=== PATIENT | female | born 1985 | race Hispanic/Latino ===

== ENCOUNTER 2020-11-07 11:22 | Inpatient (IN) | payer OTHER ==
[~2020-11-07] VITALS: Ht 157.5 cm; Wt 63.5 kg
[2020-11-07] MEDS ORDERED: ONDANSETRON HCL INJ 2MG/ML 2ML 2 MG/ML VIAL IV STA ×2 (11:35→21:44)
[2020-11-07] MEDS ORDERED: SODIUM CHLORIDE 0.9% 1000ML 1,000 ML IV STA (11:35)
[2020-11-07] MEDS ORDERED: KETOROLAC TROMETHAMINE 30 MG/ML VIAL IV STA (11:35)
[2020-11-07 12:42] LABS: BASOPHILS % 0.3 % (0.0-1.0); EOSINOPHILS # (AUTO) 0.1 (0.0-0.4); EOSINOPHILS % 1.3 % (0.0-6.0); HEMOGLOBIN 14.7 g/dL (12.0-16.0); LYMPHOCYTES # (AUTO) 1.9 (1.0-3.2); LYMPHOCYTES % 30.3 % (18.0-39.1); MEAN CORPUSCULAR HEMOGLOBIN 29.3 pg (28-32); MEAN CORPUSCULAR VOLUME 83.8 fL (81-99); MONOCYTES # (AUTO) 0.3 (0.2-0.8); NEUTROPHILS % 62.6 % (38.7-80.0); PLATELET COUNT 177 x10e3/uL (140-360); RED BLOOD COUNT 5.01 x10e6/uL (3.6-5.1); RED CELL DISTRIBUTION WIDTH 12.7 % (11.7-14.4)
[2020-11-07 12:59] LABS: ALANINE AMINOTRANSFERASE 29 IU/L (0-55); ALBUMIN 3.6 g/dL (3.5-5.0); ALBUMIN/GLOBULIN RATIO 0.7 (0.8-2.0); ALKALINE PHOSPHATASE 102 IU/L (40-150); ANION GAP 30.4 mmol/L (8-16); BLOOD UREA NITROGEN 9 mg/dL (7-26); BUN/CREATININE RATIO 13 (6-25); CALCIUM 8.4 mg/dL (8.4-10.2); CARBON DIOXIDE 9 mmol/L (22-29); CHLORIDE 96 mmol/L (98-107); CREATINE KINASE 57 IU/L (29-168); CREATININE, SERUM 0.71 mg/dL (0.57-1.11); EST GLOMERULAR FILTRATION RATE > 60 ML/MIN (60-); GLUCOSE 276 mg/dL (74-118); POTASSIUM 3.4 mmol/L (3.5-5.1); SODIUM 132 mmol/L (136-145)
[2020-11-07] MEDS ORDERED: ONDANSETRON HCL INJ 2MG/ML 2ML 2 MG/ML VIAL ONE (13:29)
[2020-11-07] MEDS ORDERED: KETOROLAC TROMETHAMINE 30 MG/ML VIAL ONE (13:29)
[2020-11-07] MEDS ORDERED: METOCLOPRAMIDE HCL 10 MG/2ML VIAL IV ONE (14:15)
[2020-11-07] MEDS ORDERED: DIPHENHYDRAMINE HCL INJ 50 MG/ML VIAL IV ONE (14:15)
[2020-11-07] MEDS ORDERED: FENTANYL CITRATE/PF 100MCG/2 ML INJ ONE (15:03)
[2020-11-07] MEDS ORDERED: SODIUM CHLORIDE 0.9% 50ML 50 ML ONE (15:50)
[2020-11-07] MEDS ORDERED: IOPAMIDOL 370 MG/ML 200 ML INFUS..BTL INJ ONE (15:50)
[2020-11-07] MEDS: SODIUM CHLORIDE 0.9% 1000ML 1,000 ML IV SCH ×2 (15:57→17:00)
[2020-11-07] MEDS ORDERED: LACTATED RINGER'S 1,000 ML INJ ONE (16:00)
[2020-11-07] MEDS ORDERED: FENTANYL CITRATE/PF 100MCG/2 ML INJ IV ONE (16:15)
[2020-11-07] MEDS ORDERED: ONDANSETRON HCL INJ 2MG/ML 2ML 2 MG/ML VIAL IV PRN (17:30)
[2020-11-07 17:39] LABS: ANION GAP 26.9 mmol/L (8-16); BLOOD UREA NITROGEN 6 mg/dL (7-26); BUN/CREATININE RATIO 9 (6-25); CALCIUM 7.7 mg/dL (8.4-10.2); CARBON DIOXIDE 12 mmol/L (22-29); CHLORIDE 99 mmol/L (98-107); CREATININE, SERUM 0.65 mg/dL (0.57-1.11); EST GLOMERULAR FILTRATION RATE > 60 ML/MIN (60-); GLUCOSE 248 mg/dL (74-118); POTASSIUM 3.9 mmol/L (3.5-5.1); SODIUM 134 mmol/L (136-145)
[2020-11-07] MEDS: HYDROMORPHONE 1MG/1ML INJ IV PRN ×3 (17:50→21:55)
[2020-11-07 18:00] VITALS: BP 143/41
[2020-11-07] MEDS ORDERED: INSULIN REGULAR, HUMAN 3ML VL 300 UNIT in SODIUM CHLORIDE 0.45% 100 ML 300 ML IV SCH ×2 (19:30)
[2020-11-07] MEDS ORDERED: DEXTROSE 50% SYRINGE 50 ML IV PRN (19:30)
[2020-11-07] MEDS ORDERED: SODIUM CHLORIDE 0.9% 1000ML 1,000 ML IV ONE (19:30)
[2020-11-07 20:11] LABS: ABG HCO3 20 mmol/L (22-26); ABG PCO2 35 mmHg (35-45); ABG PH 7.36 (7.35-7.45); ABG PO2 94 mmHg (80-105); ABG TCO2 21
[2020-11-07 20:18] LABS: ANION GAP 23.7 mmol/L (8-16); BLOOD UREA NITROGEN 6 mg/dL (7-26); BUN/CREATININE RATIO 10 (6-25); CALCIUM 7.2 mg/dL (8.4-10.2); CARBON DIOXIDE 13 mmol/L (22-29); CHLORIDE 102 mmol/L (98-107); EST GLOMERULAR FILTRATION RATE > 60 ML/MIN (60-); GLUCOSE 229 mg/dL (74-118); POTASSIUM 3.7 mmol/L (3.5-5.1); SODIUM 135 mmol/L (136-145)
[2020-11-07 20:30] VITALS: BP 149/92
[2020-11-07 20:30] LABS: MAGNESIUM 1.5 MG/DL (1.3-2.1); PHOSPHORUS 2.6 MG/DL (2.3-4.7)
[2020-11-07] MEDS ORDERED: INSULIN REGULAR, HUMAN 100 UNIT/1 ML 3ML VIAL ONE (20:38)
[2020-11-07] MEDS ORDERED: SODIUM CHLORIDE 0.9% 100 ML ONE (20:38)
[2020-11-07] MEDS: INSULIN REGULAR, HUMAN 3ML VL 300 UNIT in SODIUM CHLORIDE 0.9% 300 ML IV SCH ×2 (21:08)
[2020-11-07] MEDS: DEXTROSE 5%/0.45% SOD CHL 1,000 ML IV SCH (21:08)
[2020-11-07] MEDS ORDERED: PROMETHAZINE 12.5MG/ NACL 0.9% 12.5 MG/50 ML BAG IV PRN (21:30)
[2020-11-07] MEDS ORDERED: LACTATED RINGER'S 2,000 ML ONE (22:08)
[2020-11-07 23:00] VITALS: BP 163/93
[2020-11-08] MEDS ORDERED: METOCLOPRAMIDE HCL 10 MG/2ML VIAL IV SCH
[2020-11-08] MEDS: HYDROMORPHONE 1MG/1ML INJ IV PRN ×7 (01:10→23:14)
[2020-11-08] MEDS: DEXTROSE 5%/0.45% SOD CHL 1,000 ML IV SCH ×4 (01:47→23:14)
[2020-11-08 02:55] LABS: ANION GAP 18.7 mmol/L (8-16); BLOOD UREA NITROGEN < 5 mg/dL (7-26); CALCIUM 7.2 mg/dL (8.4-10.2); CARBON DIOXIDE 18 mmol/L (22-29); CHLORIDE 101 mmol/L (98-107); CREATININE, SERUM 0.71 mg/dL (0.57-1.11); EST GLOMERULAR FILTRATION RATE > 60 ML/MIN (60-); GLUCOSE 277 mg/dL (74-118); POTASSIUM 3.7 mmol/L (3.5-5.1); SODIUM 134 mmol/L (136-145)
[2020-11-08 03:00] VITALS: BP 153/83
[2020-11-08] MEDS: ONDANSETRON HCL INJ 2MG/ML 2ML 2 MG/ML VIAL IV PRN ×2 (03:12→09:22)
[2020-11-08] MEDS: PANTOPRAZOLE 40 MG 10ML VIAL IV SCH ×2 (03:12→14:53)
[2020-11-08 03:14] LABS: BUN/CREATININE RATIO 7 (6-25)
[2020-11-08] MEDS: METOCLOPRAMIDE HCL 10 MG/2ML VIAL IV SCH ×4 (05:30→23:55)
[2020-11-08 05:42] LABS: BASOPHILS % 0.2 % (0.0-1.0); HEMATOCRIT 38.7 % (34.2-44.1); LYMPHOCYTES # (AUTO) 1.2 (1.0-3.2); LYMPHOCYTES % 10.9 % (18.0-39.1); MEAN CORPUSCULAR HEMOGLOBIN 28.1 pg (28-32); MEAN CORPUSCULAR HGB CONC 33.6 g/dL (31-35); MEAN CORPUSCULAR VOLUME 83.8 fL (81-99); MONOCYTES # (AUTO) 0.8 (0.2-0.8); MONOCYTES % 7.2 % (4.4-11.3); NEUTROPHILS # (AUTO) 8.8 (2.1-6.9); NEUTROPHILS % 81.2 % (38.7-80.0); PLATELET COUNT 160 x10e3/uL (140-360); RED BLOOD COUNT 4.62 x10e6/uL (3.6-5.1); RED CELL DISTRIBUTION WIDTH 13.2 % (11.7-14.4)
[2020-11-08 06:32] LABS: ALANINE AMINOTRANSFERASE 23 IU/L (0-55); ALBUMIN 3.2 g/dL (3.5-5.0); ALBUMIN/GLOBULIN RATIO 0.9 (0.8-2.0); ALKALINE PHOSPHATASE 78 IU/L (40-150); ANION GAP 16.1 mmol/L (8-16); BLOOD UREA NITROGEN 5 mg/dL (7-26); BUN/CREATININE RATIO 8 (6-25); CALCIUM 7.2 mg/dL (8.4-10.2); CARBON DIOXIDE 19 mmol/L (22-29); CHLORIDE 102 mmol/L (98-107); CREATININE, SERUM 0.64 mg/dL (0.57-1.11); EST GLOMERULAR FILTRATION RATE > 60 ML/MIN (60-); GLUCOSE 272 mg/dL (74-118); POTASSIUM 3.1 mmol/L (3.5-5.1); SODIUM 134 mmol/L (136-145)
[2020-11-08 06:53] LABS: CHOL/HDL RATIO 5.1 (3.0-3.6)
[2020-11-08 08:00] VITALS: BP 133/88
[2020-11-08 09:00] VITALS: BP 133/88
[2020-11-08 12:00] VITALS: BP 140/92
[2020-11-08 14:59] LABS: ANION GAP 15.8 mmol/L (8-16); BLOOD UREA NITROGEN 7 mg/dL (7-26); BUN/CREATININE RATIO 10 (6-25); CALCIUM 7.2 mg/dL (8.4-10.2); CARBON DIOXIDE 21 mmol/L (22-29); CHLORIDE 101 mmol/L (98-107); CREATININE, SERUM 0.67 mg/dL (0.57-1.11); EST GLOMERULAR FILTRATION RATE > 60 ML/MIN (60-); GLUCOSE 286 mg/dL (74-118); POTASSIUM 3.8 mmol/L (3.5-5.1); SODIUM 134 mmol/L (136-145)
[2020-11-08 16:50] LABS: FREE T4 (FREE THYROXINE) 1.15 ng/dL (0.8-1.8); THYROID STIMULATING HORMONE 0.555 uIU/mL (0.350-4.940)
[2020-11-08] MEDS: ENOXAPARIN SOD INJ 40 MG/0.4 ML SYR SC SCH (19:41)
[2020-11-08] MEDS: FENOFIBRATE 145 MG TAB PO SCH (20:27)
[2020-11-08] MEDS ORDERED: FENOFIBRATE 145 MG TAB PO SCH (21:00)
[2020-11-08 23:16] VITALS: BP 110/69
[2020-11-08 23:20] VITALS: BP 110/69
[2020-11-08] MEDS: INSULIN REGULAR, HUMAN 3ML VL 300 UNIT in SODIUM CHLORIDE 0.9% 300 ML IV SCH ×2 (23:59)
[2020-11-09] VITALS (7 sets, daily range): BP systolic 100–133; BP diastolic 61–78
[2020-11-09] MEDS ORDERED: PANTOPRAZOL 40MG/SOD CHL 0.9% 50 ML IV ONE (02:26)
[2020-11-09] MEDS: PANTOPRAZOLE 40 MG 10ML VIAL IV SCH ×2 (02:28→14:30)
[2020-11-09] MEDS: HYDROMORPHONE 1MG/1ML INJ IV PRN ×7 (02:28→23:30)
[2020-11-09] MEDS: METOCLOPRAMIDE HCL 10 MG/2ML VIAL IV SCH ×4 (05:33→23:29)
[2020-11-09] MEDS: INSULIN REGULAR, HUMAN 3ML VL 300 UNIT in SODIUM CHLORIDE 0.9% 300 ML IV SCH ×2 (05:33)
[2020-11-09 06:40] LABS: ANION GAP 11.1 mmol/L (8-16); BLOOD UREA NITROGEN 5 mg/dL (7-26); BUN/CREATININE RATIO 8 (6-25); CALCIUM 7.1 mg/dL (8.4-10.2); CARBON DIOXIDE 25 mmol/L (22-29); CHLORIDE 103 mmol/L (98-107); CREATININE, SERUM 0.61 mg/dL (0.57-1.11); EST GLOMERULAR FILTRATION RATE > 60 ML/MIN (60-); GLUCOSE 235 mg/dL (74-118); LIPASE 203 U/L (8-78); POTASSIUM 3.1 mmol/L (3.5-5.1); SODIUM 136 mmol/L (136-145)
[2020-11-09] MEDS: DEXTROSE 5%/0.45% SOD CHL 1,000 ML IV SCH ×3 (06:56→23:29)
[2020-11-09] MEDS: ONDANSETRON HCL INJ 2MG/ML 2ML 2 MG/ML VIAL IV PRN (09:19)
[2020-11-09] MEDS: ENOXAPARIN SOD INJ 40 MG/0.4 ML SYR SC SCH (16:25)
[2020-11-09] MEDS ORDERED: INSULIN GLARGINE 100 UNITS/ML VIAL SQ SCH (21:00)
[2020-11-09] MEDS ORDERED: POTASSIUM CHLORIDE 20 MEQ TAB CR PO STA (23:21)
[2020-11-09] MEDS: FENOFIBRATE 145 MG TAB PO SCH (23:29)
[2020-11-10] VITALS (8 sets, daily range): BP systolic 107–125; BP diastolic 67–76
[2020-11-10] MEDS ORDERED: HYDROMORPHONE 2MG/ML 2 MG/ML ML IV ONE (02:45)
[2020-11-10] MEDS ORDERED: HYDROCODONE/APAP 10MG-325MG TAB PO PRN (02:45)
[2020-11-10] MEDS: PANTOPRAZOLE 40 MG 10ML VIAL IV SCH ×2 (02:57→14:30)
[2020-11-10] MEDS: ONDANSETRON HCL INJ 2MG/ML 2ML 2 MG/ML VIAL IV PRN (03:04)
[2020-11-10] MEDS: DEXTROSE 5%/0.45% SOD CHL 1,000 ML IV SCH ×2 (04:45→07:46)
[2020-11-10 05:18] LABS: ANION GAP 10.1 mmol/L (8-16); BLOOD UREA NITROGEN < 5 mg/dL (7-26); CALCIUM 7.2 mg/dL (8.4-10.2); CARBON DIOXIDE 26 mmol/L (22-29); CHLORIDE 103 mmol/L (98-107); CREATININE, SERUM 0.57 mg/dL (0.57-1.11); EST GLOMERULAR FILTRATION RATE > 60 ML/MIN (60-); GLUCOSE 216 mg/dL (74-118); LIPASE 102 U/L (8-78); POTASSIUM 3.1 mmol/L (3.5-5.1); SODIUM 136 mmol/L (136-145)
[2020-11-10 05:28] LABS: BUN/CREATININE RATIO 9 (6-25)
[2020-11-10 05:57] LABS: BASOPHILS % 0.2 % (0.0-1.0); EOSINOPHILS # (AUTO) 0.1 (0.0-0.4); EOSINOPHILS % 1.7 % (0.0-6.0); HEMATOCRIT 30.7 % (34.2-44.1); LYMPHOCYTES # (AUTO) 1.3 (1.0-3.2); LYMPHOCYTES % 21.5 % (18.0-39.1); MEAN CORPUSCULAR HEMOGLOBIN 28.3 pg (28-32); MEAN CORPUSCULAR HGB CONC 31.6 g/dL (31-35); MEAN CORPUSCULAR VOLUME 89.5 fL (81-99); MONOCYTES # (AUTO) 0.4 (0.2-0.8); MONOCYTES % 7.4 % (4.4-11.3); PLATELET COUNT 108 x10e3/uL (140-360); RED BLOOD COUNT 3.43 x10e6/uL (3.6-5.1); RED CELL DISTRIBUTION WIDTH 13.4 % (11.7-14.4)
[2020-11-10] MEDS: METOCLOPRAMIDE HCL 10 MG/2ML VIAL IV SCH ×4 (06:12→23:40)
[2020-11-10 06:13] LABS: HEMOGLOBIN 9.7 g/dL (12.0-16.0)
[2020-11-10 06:33] LABS: HEMATOCRIT 28.9 % (34.2-44.1); HEMOGLOBIN 9.4 g/dL (12.0-16.0)
[2020-11-10] MEDS: SUCRALFATE 1 GM/10 ML SUSP NG SCH ×4 (07:46→20:56)
[2020-11-10] MEDS: HYDROMORPHONE 1MG/1ML INJ IV PRN ×4 (09:31→21:53)
[2020-11-10 12:18] LABS: HEMOGLOBIN 9.3 g/dL (12.0-16.0)
[2020-11-10] MEDS ORDERED: INSULIN REGULAR, HUMAN 3ML VL 100 UNIT in SODIUM CHLORIDE 0.9% 99 ML IV SCH ×2 (13:45)
[2020-11-10] MEDS ORDERED: POTASSIUM CHLORIDE 20 MEQ in DEXTROSE 5%/0.45% SOD CHL 1,000 ML IV SCH (14:05)
[2020-11-10] MEDS: INSULIN LISPRO 100 UNIT/1 ML 3ML VIAL SQ SCH ×4 (14:52→20:42)
[2020-11-10] MEDS: D5.45%NS/KCL 20MEQ 1,000 ML IV SCH (15:00)
[2020-11-10 15:01] LABS: CLARITY,URINE SL CLOUDY (CLEAR); COLOR,URINE AMBER (YELLOW); KETONES,URINE NEGATIVE (NEGATIVE); LEUKOCYTE ESTERASE ,URINE NEGATIVE (NEGATIVE); NITRITE,URINE NEGATIVE (NEGATIVE); PREGNANCY TEST, URINE NEGATIVE (NEGATIVE); PROTEIN,URINE DIPSTICK NEGATIVE (NEGATIVE); URINE UROBILINOGEN 8 mg/dL (0.2 - 1)
[2020-11-10 15:02] LABS: AMPHETAMINES SCREEN,URINE NEGATIVE (NEGATIVE); BENZODIAZEPINES SCREEN,URINE NEGATIVE (NEGATIVE); PHENCYCLIDINE SCREEN,URINE NEGATIVE (NEGATIVE)
[2020-11-10 15:18] LABS: BACTERIA,URINE FEW /HPF; EPITHELIAL CELLS,URINE MODERATE /LPF; WBC,URINE (MAN) 0-5 /HPF (0-5)
[2020-11-10] MEDS ORDERED: POTASSIUM CHLORIDE 20 MEQ TAB CR PO ONE (16:00)
[2020-11-10] MEDS: ENOXAPARIN SOD INJ 40 MG/0.4 ML SYR SC SCH (16:41)
[2020-11-10] MEDS: FENOFIBRATE 145 MG TAB PO SCH (20:56)
[2020-11-10] MEDS ORDERED: INSULIN GLARGINE 100 UNITS/ML VIAL SQ SCH (21:00)
[2020-11-11 00:09] VITALS: BP 133/79
[2020-11-11] MEDS: D5.45%NS/KCL 20MEQ 1,000 ML IV SCH ×2 (00:23→10:21)
[2020-11-11] MEDS ORDERED: BISACODYL 5 MG TAB EC PO ONE ×2 (01:00)
[2020-11-11] MEDS: HYDROMORPHONE 1MG/1ML INJ IV PRN ×2 (01:34→05:14)
[2020-11-11] MEDS: PANTOPRAZOLE 40 MG 10ML VIAL IV SCH (02:22)
[2020-11-11 04:00] VITALS: BP 117/66
[2020-11-11] MEDS: METOCLOPRAMIDE HCL 10 MG/2ML VIAL IV SCH (05:15)
[2020-11-11 05:23] LABS: ANION GAP 9.5 mmol/L (8-16); BLOOD UREA NITROGEN < 5 mg/dL (7-26); CALCIUM 7.3 mg/dL (8.4-10.2); CARBON DIOXIDE 25 mmol/L (22-29); CHLORIDE 106 mmol/L (98-107); CREATININE, SERUM 0.59 mg/dL (0.57-1.11); EST GLOMERULAR FILTRATION RATE > 60 ML/MIN (60-); GLUCOSE 233 mg/dL (74-118); LIPASE 59 U/L (8-78); MAGNESIUM 1.7 MG/DL (1.3-2.1); PHOSPHORUS 1.5 MG/DL (2.3-4.7); POTASSIUM 3.5 mmol/L (3.5-5.1); SODIUM 137 mmol/L (136-145)
[2020-11-11 05:24] LABS: BUN/CREATININE RATIO 8 (6-25)
[2020-11-11 05:50] LABS: FERRITIN 169.88 ng/mL (4.63-204.00)
[2020-11-11] MEDS: INSULIN LISPRO 100 UNIT/1 ML 3ML VIAL SQ SCH ×2 (09:00→10:22)
[2020-11-11 09:18] VITALS: BP 132/84
[2020-11-11] MEDS: SUCRALFATE 1 GM/10 ML SUSP NG SCH (09:22)
[2020-11-11 13:10] VITALS: BP 136/80
[2020-11-11] MEDS ORDERED: INSULIN GLARGINE 100 UNITS/ML VIAL SQ SCH (21:00)
[2020-11-12] MEDS ORDERED: PANTOPRAZOLE SOD 40 MG TABEC PO SCH (07:30)
== END 2020-11-11 15:04 | disposition home or self-care (01) | DRG 438 ==
LOC: ER 11:35 → ERHOLD 14:42 → MED/SURG3 16:15 → IMCU 20:26 → OBSVTOIN 11-08 14:12 → IMCU 11-08 16:39
PROVIDERS: ADMIT Internal Medicine; ATTEND Internal Medicine
DX: K85.80 Other acute pancreatitis without necrosis or infection (principal); E11.10 Type 2 diabetes mellitus with ketoacidosis without coma; Z20.822 Contact with and (suspected) exposure to COVID-19; K59.00 Constipation, unspecified; D64.9 Anemia, unspecified; E78.5 Hyperlipidemia, unspecified
CPT/HCPCS: 36415; 36600; 74177; 80048; 80053; 80061; 80307; 81001; 81025; 82150; 82270; 82550; 82553; 82607; 82728; 82746; 82805; 82948; 83036; 83540; 83690; 83735; 84100; 84439; 84443; 84466; 84478; 84484; 84702; 85014; 85018; 85025; 85045; 99251; 99284; G0378; J1170; J1200; J1650; J1815; J1817; J1885; J2405; J2765; J3010; J7030; J7050; J7121; Q9967; U0002

== ENCOUNTER 2023-01-27 21:09 | Emergency (ER) | payer OTHER ==
[~2023-01-27] VITALS: Ht 152.4 cm; Wt 70.3 kg
[2023-01-27] MEDS ORDERED: ASPIRIN 325 MG TAB PO ONE (21:45)
[2023-01-27] MEDS ORDERED: IOPAMIDOL 370 MG/ML 100 ML INFUS..BTL INJ ONE (21:54)
[2023-01-27] MEDS ORDERED: ASPIRIN 325 MG TAB ONE (22:00)
[2023-01-27] MEDS ORDERED: SODIUM CHLORIDE 0.9% 1000ML 1,000 ML IV SCH (22:15)
[2023-01-27] MEDS ORDERED: SODIUM CHLORIDE 0.9% 1000ML 1,000 ML ONE (22:16)
[2023-01-27] MEDS ORDERED: ONDANSETRON ODT4 MG PO (23:27)
[2023-01-27 23:29] VITALS: BP 147/88
== END 2023-01-27 23:35 | disposition home or self-care (01) ==
LOC: FSED 21:18
DX: R06.00 Dyspnea, unspecified (principal); R07.89 Other chest pain; E11.65 Type 2 diabetes mellitus with hyperglycemia; R53.83 Other fatigue; Z98.84 Bariatric surgery status
CPT/HCPCS: 71045; 71260; 80048; 80076; 80307; 81003; 81025; 82553; 84484; 85025; 85610; 93005; 99284; J7030; Q9967

== ENCOUNTER 2023-10-03 22:21 | Emergency (ER) | payer OTHER ==
[~2023-10-03] VITALS: Ht 157.5 cm; Wt 61.2 kg
[~2023-10-03 22:21] MED LIST: AUGMENTIN 500-1 EACH PO; CIPRODEX OTIC7.5 ML EACH EAR; ONDANSETRON ODT4 MG PO
[2023-10-03] MEDS ORDERED: ONDANSETRON HCL INJ 2MG/ML 2ML 2 MG/ML VIAL IV STA (23:16)
[2023-10-03] MEDS ORDERED: FAMOTIDINE 20 MG/2 ML VIAL IV STA (23:19)
[2023-10-03] MEDS ORDERED: HYDROCODONE/APAP 5MG-325MG TAB PO ONE (23:30)
[2023-10-03] MEDS ORDERED: SODIUM CHLORIDE 0.9% 1000ML 1,000 ML IV SCH (23:30)
[2023-10-03] MEDS ORDERED: HYDROCODONE/APAP 5MG-325MG TAB ONE (23:59)
[2023-10-04 00:39] LABS: BASOPHILS # (AUTO) 0.1 (0.0-0.1); BASOPHILS % 0.6 % (0.0-1.0); EOSINOPHILS # (AUTO) 0.3 (0.0-0.4); EOSINOPHILS % 2.6 % (0.0-6.0); HEMATOCRIT 32.7 % (34.2-44.1); HEMOGLOBIN 10.1 g/dL (12.0-16.0); LYMPHOCYTES # (AUTO) 5.5 (1.0-3.2); LYMPHOCYTES % 54.3 % (18.0-39.1); MEAN CORPUSCULAR HEMOGLOBIN 26.2 pg (28-32); MEAN CORPUSCULAR HGB CONC 30.9 g/dL (31-35); MEAN CORPUSCULAR VOLUME 84.7 fL (81-99); MONOCYTES # (AUTO) 0.6 (0.2-0.8); MONOCYTES % 6.1 % (4.4-11.3); NEUTROPHILS # (AUTO) 3.7 (2.1-6.9); NEUTROPHILS % 36.3 % (38.7-80.0); PLATELET COUNT 667 x10e3/uL (140-360); RED BLOOD COUNT 3.86 x10e6/uL (3.6-5.1); RED CELL DISTRIBUTION WIDTH 14.6 % (11.7-14.4); WHITE BLOOD COUNT 10.08 x10e3/uL (4.8-10.8)
[2023-10-04] MEDS ORDERED: KETOROLAC TROMETHAMINE 30 MG/ML VIAL IV STA (00:44)
[2023-10-04] MEDS ORDERED: HYDROCODONE/APAP 5MG-325MG TAB PO ONE (00:45)
[2023-10-04 00:54] LABS: ALBUMIN 3.9 g/dL (3.5-5.0); ALBUMIN/GLOBULIN RATIO 0.8 (0.8-2.0); ANION GAP 14.1 mmol/L (8-16); BILIRUBIN,TOTAL 0.3 mg/dL (0.2-1.2); CALCIUM 8.8 mg/dL (8.4-10.2); CREATININE, SERUM 0.79 mg/dL (0.57-1.11); POTASSIUM 4.1 mmol/L (3.5-5.1); TOTAL PROTEIN 8.5 g/dL (6.5-8.1)
[2023-10-04] MEDS ORDERED: HYDROCODONE/APAP 5MG-325MG TAB ONE (01:01)
[2023-10-04] MEDS ORDERED: KETOROLAC TROMETHAMINE 30 MG/ML VIAL ONE (01:01)
[2023-10-04] MEDS ORDERED: ACETAMINOPHEN-1 EAC3 PO (02:01)
[2023-10-04] MEDS ORDERED: ONDANSETRON ODT4 MG PO ×2 (02:01→02:05)
[2023-10-04 04:27] LABS: BASOPHILS % (MANUAL) 2 % (0-1.5); EOSINOPHILS % (MANUAL) 2 % (0-7); LYMPHOCYTES % (MANUAL) 51 % (19-48); MONOCYTES % (MANUAL) 4 % (3.4-9.0); NEUTROPHILS % (MANUAL) 41 % (40-74)
[2023-10-04 04:28] LABS: PLATELET ESTIMATE ADEQUATE; PLATELET MORPHOLOGY COMMENT NORMAL; RBC MORPHOLOGY COMMENT NORMAL
[2023-10-04 06:41] VITALS: BP 139/74; PULSE 82; RESP 16; TEMP 98.7; O2SAT 100
== END 2023-10-04 01:15 | disposition home or self-care (01) ==
LOC: FSED 22:34
DX: O03.9 Complete or unspecified spontaneous abortion without complication (principal); E11.65 Type 2 diabetes mellitus with hyperglycemia; K21.9 Gastro-esophageal reflux disease without esophagitis; Z98.84 Bariatric surgery status
CPT/HCPCS: 36415; 76801; 76830; 80053; 84702; 85025; 86850; 86900; 99284; J1885

== ENCOUNTER 2024-07-13 16:14 | Emergency (ER) | payer OTHER ==
[~2024-07-13] VITALS: Ht 152.4 cm; Wt 62.6 kg
[~2024-07-13 16:14] MED LIST changes: +ACETAMINOPHEN-1 EAC3 PO
[2024-07-13 17:52] LABS: BASOPHILS # (AUTO) 0.1 (0.0-0.1); BASOPHILS % 0.4 % (0.0-1.0); EOSINOPHILS # (AUTO) 0.2 (0.0-0.4); EOSINOPHILS % 1.6 % (0.0-6.0); HEMATOCRIT 42.4 % (34.2-44.1); HEMOGLOBIN 13.7 g/dL (12.0-16.0); LYMPHOCYTES # (AUTO) 5.2 (1.0-3.2); LYMPHOCYTES % 40.5 % (18.0-39.1); MEAN CORPUSCULAR HEMOGLOBIN 31.7 pg (28-32); MEAN CORPUSCULAR HGB CONC 32.3 g/dL (31-35); MEAN CORPUSCULAR VOLUME 98.1 fL (81-99); MONOCYTES # (AUTO) 0.7 (0.2-0.8); MONOCYTES % 5.3 % (4.4-11.3); NEUTROPHILS # (AUTO) 6.6 (2.1-6.9); NEUTROPHILS % 51.9 % (38.7-80.0); PLATELET COUNT 451 x10e3/uL (140-360); RED BLOOD COUNT 4.32 x10e6/uL (3.6-5.1); WHITE BLOOD COUNT 12.73 x10e3/uL (4.8-10.8)
[2024-07-13 18:11] LABS: ALBUMIN 3.9 g/dL (3.5-5.0); ANION GAP 15.8 mmol/L (8-16); BILIRUBIN,TOTAL 0.3 mg/dL (0.2-1.2); CALCIUM 8.9 mg/dL (8.4-10.2); CREATININE, SERUM 0.74 mg/dL (0.57-1.11); POTASSIUM 3.8 mmol/L (3.5-5.1); TOTAL PROTEIN 7.7 g/dL (6.5-8.1)
[2024-07-13 19:00] VITALS: PULSE 79; RESP 16; TEMP 98.8
[2024-07-13 19:32] VITALS: BP 137/81; PULSE 79; RESP 18; TEMP 98.8; O2SAT 99
== END 2024-07-13 19:32 | disposition home or self-care (01) ==
LOC: FSED 16:27
DX: O20.9 Hemorrhage in early pregnancy, unspecified (principal); E11.65 Type 2 diabetes mellitus with hyperglycemia; K21.9 Gastro-esophageal reflux disease without esophagitis; F41.9 Anxiety disorder, unspecified; Z98.84 Bariatric surgery status
CPT/HCPCS: 36415; 76801; 76830; 80053; 84702; 85025; 99283